=== PATIENT | male | born 1970 | race African-American/Black ===

== ENCOUNTER 2022-08-01 09:01 | Emergency (ER) | payer SELFPAY ==
[~2022-08-01] VITALS: Ht 190.5 cm; Wt 90.3 kg
--- NOTE | 2022-08-01 09:17 | NUR ---
TO ER 13 FOR EVAL AND TREATMENT OF LEFT HIP PAIN.
--- NOTE | 2022-08-01 09:32 | NUR ---
DR DENIS AT BEDSIDE FOR EVAL.
[2022-08-01] MEDS ORDERED: LIDOCAINE 5% (PATCH) 1 EA PATCH TP SCH (10:00)
[2022-08-01] MEDS ORDERED: LIDO30AD10 TP (10:38)
[2022-08-01 11:17] VITALS: BP 125/70
--- NOTE | 2022-08-01 11:17 | NUR ---
Patient discharged to home in stable condition. Written and verbal after care instructions given. Patient verbalizes understanding of instruction.
== END 2022-08-01 11:18 | disposition home or self-care (01) ==
LOC: ER 09:03
DX: S70.02XA Contusion of left hip, initial encounter (principal); S20.212A Contusion of left front wall of thorax, initial encounter; I10 Essential (primary) hypertension; Z60.2 Problems related to living alone; Z79.899 Other long term (current) drug therapy; V09.9XXA Pedestrian injured in unspecified transport accident, initial encounter; Y93.89 Activity, other specified; Y92.89 Other specified places as the place of occurrence of the external cause; Y99.8 Other external cause status
CPT/HCPCS: 71100-TC; 73502; 73552

== ENCOUNTER 2024-09-29 08:39 | Emergency (ER) | payer OTHER ==
[~2024-09-29] VITALS: Ht 190.5 cm; Wt 93.0 kg
[~2024-09-29 08:39] MED LIST: LIDO30AD10 TP
[2024-09-29] MEDS ORDERED: IBUPROFEN 400 MG TABLET ONE (09:04)
[2024-09-29] MEDS ORDERED: ACETAMINOPHEN ES 500 MG TABLET ONE (09:04)
[2024-09-29 09:08] VITALS: TEMP 98.4
[2024-09-29] MEDS ORDERED: IBUP-1953 PO (09:41)
[2024-09-29] MEDS: IBUPROFEN 400 MG TABLET PO ONE (09:51)
[2024-09-29] MEDS: ACETAMINOPHEN ES 500 MG TABLET PO ONE (09:51)
[2024-09-29 10:17] VITALS: BP 132/88; O2SAT 98
== END 2024-09-29 10:48 | disposition home or self-care (01) ==
LOC: ER 08:45
DX: S80.01XA Contusion of right knee, initial encounter (principal); S40.011A Contusion of right shoulder, initial encounter; I10 Essential (primary) hypertension; Z60.2 Problems related to living alone; V24.49XA Other motorcycle driver injured in collision with heavy transport vehicle or bus in traffic accident, initial encounter; Y93.89 Activity, other specified; Y92.488 Other paved roadways as the place of occurrence of the external cause; Y99.8 Other external cause status
CPT/HCPCS: 73030-TC; 73564-TC

== ENCOUNTER 2024-12-25 12:25 | Emergency (ER) | payer OTHER ==
[~2024-12-25] VITALS: Ht 190.5 cm; Wt 90.7 kg
[~2024-12-25 12:25] MED LIST changes: +IBUP-1953 PO
[2024-12-25 12:46] VITALS: BP 146/78; TEMP 98
[2024-12-25 15:27] VITALS: O2SAT 98
== END 2024-12-25 15:27 | disposition home or self-care (01) ==
LOC: ER 12:25
DX: S61.412A Laceration without foreign body of left hand, initial encounter (principal); I10 Essential (primary) hypertension; W45.8XXA Other foreign body or object entering through skin, initial encounter; Y93.89 Activity, other specified; Y92.89 Other specified places as the place of occurrence of the external cause; Y99.8 Other external cause status